=== PATIENT | female | born 1950 | race Caucasian/White ===

== ENCOUNTER → 2020-07-14 09:40 | Outpatient (CLI) | payer MEDICARE, SELFPAY ==
[2020-07-14 11:27] LABS: Free T3, Triiodothyronine Free 3.58 pg/mL (2.77-5.27); Free T4, Direct Thyroxine 0.97 ng/dL (0.78-2.19)
[2020-07-14 11:40] LABS: Thyroid Stimulating Hormone 2.63 uIU/mL (0.47-4.68)
== END ==
PROVIDERS: Family Provider Family Medicine; PCP Family Medicine; Referring Provider Family Medicine; Visit Provider Family Medicine
DX: Z86.39 Personal history of other endocrine, nutritional and metabolic disease (principal)
CPT/HCPCS: 36415; 84439; 84443; 84481

== ENCOUNTER → 2021-12-08 08:34 | Outpatient (CLI) | payer MEDICARE, SELFPAY ==
[2021-12-08 09:41] LABS: Add Manual Diff / Slide Review NO; Basophils Absolute Auto 0 /uL (0-100); Basophils Percent Auto 0.6 % (0-2); Eosinophils Absolute Auto 300 /uL (0-450); Eosinophils Percent Auto 4.1 % (2-4); Hematocrit 46.2 % (36-46); Hemoglobin 14.9 g/dL (12.0-16.0); Lymphocytes Absolute Auto 2800 /uL (1100-4500); Lymphocytes Percent Auto 40.2 % (25-40); Mean Corpuscular HGB Conc 32.2 % (30-36); Mean Corpuscular Hemoglobin 28.5 PG (26-34); Mean Corpuscular Volume 88.4 fL (80-100); Monocytes Absolute Auto 400 /uL (0-900); Monocytes Percent Auto 5.7 % (3-14); Neutrophils Absolute Auto 3500 /uL (1500-7000); Neutrophils Percent Auto 49.4 % (50-75); Platelet Count 258 X10^3/uL (150-400); Red Blood Cell Count 5.22 X10^6/uL (4.0-5.2); Red Cell Distribution Width 13.8 % (11.6-14.8)
[2021-12-08 10:02] LABS: Alanine Aminotransferase 27 IU/L (<35); Albumin 4.2 g/dL (3.5-5.0); Albumin Globulin Ratio 1.6 (1.0-2.8); Alkaline Phosphatase 76 U/L (38-126); Aspartate Aminotransferase 25 IU/L (14-36); BUN Creatinine Ratio 19.1 (6-22); Bilirubin Total 0.7 mg/dL (0.2-1.3); Blood Urea Nitrogen 13 mg/dL (7-17); Calcium 10.6 mg/dL (8.4-10.2); Carbon Dioxide 22 mmol/L (22-32); Chloride 107 mmol/L (98-107); Cholesterol 251 mg/dL (140-199); Estimated Glomerular Filt Rate > 60 mL/min (>60); Globulin 2.7 g/dL (1.7-4.1); Glucose 113 mg/dL (80-110); HDL Cholesterol 62 mg/dL (40-60); HEMOLYSIS < 15 (0-50); LDL Cholesterol Calculated 141 mg/dL (<100); Potassium 4.6 mmol/L (3.4-5.1); Sodium 137 mmol/L (137-145); Total Protein 6.9 g/dL (6.3-8.2); Triglycerides 241 mg/dL (35-150)
[2021-12-08 10:16] LABS: Free T3, Triiodothyronine Free 3.59 pg/mL (2.77-5.27); Free T4, Direct Thyroxine 0.92 ng/dL (0.78-2.19)
[2021-12-08 10:29] LABS: Thyroid Stimulating Hormone 2.91 uIU/mL (0.47-4.68)
== END ==
PROVIDERS: Family Provider Family Medicine; PCP Family Medicine; Referring Provider Family Medicine; Visit Provider Family Medicine
DX: Z86.39 Personal history of other endocrine, nutritional and metabolic disease (principal); Z13.220 Encounter for screening for lipoid disorders
CPT/HCPCS: 36415; 80053; 80061; 84439; 84443; 84481; 85025

== ENCOUNTER → 2021-12-27 09:47 | Outpatient (CLI) | payer MEDICARE, SELFPAY ==
[2021-12-27 10:42] LABS: COVID19 -Nasal RAPID Negative (Negative)
== END ==
PROVIDERS: Family Provider Family Medicine; PCP Family Medicine; Visit Provider Family Medicine Sleep Medicine
DX: Z20.822 Contact with and (suspected) exposure to COVID-19 (principal)
CPT/HCPCS: 87635; C9803

== ENCOUNTER → 2022-01-02 08:29 | Outpatient (CLI) | payer MEDICARE, SELFPAY ==
--- NOTE | 2022-01-02 09:20 | PM.TREADMILL ---
Cardiac Stress Test Report Referral & Results Date Patient Seen: 01/02/22 Time Patient Seen: 09:00 Requesting provider: Benja Morales Indication: Chest discomfort Rest ECG: Normal sinus rhythm Procedure Note: Today, following both written and verbal informed consent, the patient was exercised according to a standard Jv protocol. The patient went for a total of 6 minutes achieving a maximum heart rate of 155 maximum systolic blood pressure of 180. This is approximately 7.0 METs. Exercise was terminated at this point because of fatigue. Patient was also given Cardiolite through a previously started Hep-Lock IV by the dye penetrant testing technician approximately 1 minute prior to the cessation of exercise. Normal hemodynamic response to exercise. Normal exercise capacity (FA I -5% on active scale). Frequent PVCs in proportion to exertion. A single, 3-beat run of NSVT. No signs or symptoms of angina. No other EKG changes. Impression: Low probability for ischemia. Exercise-induced PVCs. Perfusion imaging pending. Please note: Actual ECG tracings can be found in the PACS system.
--- NOTE | 2022-01-04 05:29 | DI.NM.S_ITS ---
DATE OF SERVICE: PROCEDURE: Exercise perfusion study. INDICATION: Chest pain. RADIOPHARMACEUTICAL: 24.5 mCi technetium-99m Myoview IV was injected at stress and 15.0 mCi technetium-99m Myoview IV was injected at rest. CARDIAC STRESS: The patient underwent exercise perfusion study under the supervision of the attending staff. The patient walked on Jv protocol for 6 minutes and 1 second, achieved 104 percent of target heart rate. Baseline blood pressure 120/80 mmHg. Peak blood pressure 180/90 mmHg. Functional aerobic impairment -5 percent. Achieved 7 METs of workload. No anginal symptoms. The patient felt fatigue. Baseline rhythm was sinus. During stress, no convincing ischemic EKG changes seen. Intermittent premature ventricular contractions were seen during exercise as well as one three-beat run of a supraventricular tachycardia. No sustained ventricular tachycardia seen. RAW DATA: There is a breast shadow seen. GATED STUDY: Resting left ventricular ejection fraction 80 percent and stress left ventricular ejection fraction 85 percent without any obvious wall motion abnormalities. Resting end-diastolic volume 51 mL. TID ratio 0.73, which is within normal limits. Lung/heart ratio 0.19, which is within normal limits. MYOCARDIAL PERFUSION SCAN: Stress supine and resting supine images revealed small size, mildly decreased perfusion of distal anterior wall, which got resolved during prone images suggestive of breast tissue attenuation artifact. CONCLUSION: 1. This is a normal myocardial perfusion study with evidence of breast tissue attenuation artifact which got resolved during prone images. 2. Fair exercise tolerance. 3. Normal hemodynamic response. 4. Intermittent premature ventricular contractions and one three-beat run of nonsustained ventricular tachycardia. No sustained ventricular tachycardia. Preserved left ventricular function. As far as perfusion scan is concerned, this is a low-risk myocardial perfusion scan. Shanda Fernandez - SAI/fabian/WANDA doc#: [id number]/job#: [id number] dd: 01/03/2022 17:25:00 dt: 01/03/2022 19:40:00 DICTATING MD/COPIES TO: Bradley Scruggs MD COPIES MNE: SUSAN;
== END ==
PROVIDERS: Family Provider Family Medicine; PCP Family Medicine; Referring Provider Family Medicine; Visit Provider Family Medicine
DX: R07.89 Other chest pain (principal)
CPT/HCPCS: 78452; 93016; 93017; 93018; A9502

== ENCOUNTER → 2022-07-12 08:32 | Outpatient (CLI) | payer MEDICARE, SELFPAY ==
[2022-07-12 09:24] LABS: Influenza A - CEPHEID Flu A POSITIVE (NEGATIVE); Influenza B - CEPHEID Flu B NEGATIVE (NEGATIVE); Respiratory Syncytial Virus Negative (Negative)
[2022-07-12 09:32] LABS: COVID-19 CEPHEID 4-PLEX PCR Negative (Negative)
== END ==
PROVIDERS: Family Provider Family Medicine; PCP Family Medicine; Visit Provider Nurse Practitioner Family
DX: R05.9 Cough, unspecified (principal)
CPT/HCPCS: 0241U

== ENCOUNTER → 2023-10-24 14:42 | Outpatient (CLI) | payer MEDICARE, SELFPAY ==
[2023-10-24 16:53] LABS: Free T3, Triiodothyronine Free 3.48 pg/mL (2.77-5.27)
[2023-10-24 17:06] LABS: Thyroid Stimulating Hormone 2.05 uIU/mL (0.47-4.68)
== END ==
PROVIDERS: Family Provider Family Medicine; PCP Family Medicine; Referring Provider Family Medicine; Visit Provider Family Medicine
DX: L65.9 Nonscarring hair loss, unspecified (principal); Z98.890 Other specified postprocedural states
CPT/HCPCS: 36415; 84439; 84443; 84481

== ENCOUNTER → 2024-03-14 14:05 | Outpatient (CLI) | payer MEDICARE, SELFPAY ==
[2024-03-14 14:48] LABS: Add Manual Diff / Slide Review NO; Basophils Absolute Auto 0 /uL (0-100); Basophils Percent Auto 0.5 % (0-2); Eosinophils Absolute Auto 200 /uL (0-450); Eosinophils Percent Auto 2.4 % (2-4); Hematocrit 39.9 % (36-46); Hemoglobin 13.4 g/dL (12.0-16.0); Lymphocytes Absolute Auto 1800 /uL (1100-4500); Lymphocytes Percent Auto 23.5 % (25-40); Mean Corpuscular HGB Conc 33.5 % (30-36); Mean Corpuscular Hemoglobin 28.6 PG (26-34); Mean Corpuscular Volume 85.2 fL (80-100); Monocytes Absolute Auto 700 /uL (0-900); Monocytes Percent Auto 8.7 % (3-14); Neutrophils Absolute Auto 5100 /uL (1500-7000); Neutrophils Percent Auto 64.9 % (50-75); Platelet Count 230 X10^3/uL (150-400); Red Blood Cell Count 4.69 X10^6/uL (4.0-5.2); Red Cell Distribution Width 14.4 % (11.6-14.8); White Blood Cell Count 7.8 X10^3/uL (4.5-11.0)
[2024-03-14 15:12] LABS: Alanine Aminotransferase 68 IU/L (<35); Albumin 4.1 g/dL (3.5-5.0); Albumin Globulin Ratio 1.5 (1.0-2.8); Alkaline Phosphatase 108 U/L (38-126); Amylase 61 U/L (30-110); Aspartate Aminotransferase 22 IU/L (14-36); BUN Creatinine Ratio 22.7 (6-22); Bilirubin Total 0.5 mg/dL (0.2-1.3); Blood Urea Nitrogen 17 mg/dL (7-17); Calcium 10.8 mg/dL (8.4-10.2); Carbon Dioxide 23 mmol/L (22-32); Chloride 109 mmol/L (98-107); Cholesterol 167 mg/dL (140-199); Estimated Glomerular Filt Rate > 60 mL/min (>60); Globulin 2.7 g/dL (1.7-4.1); Glucose 145 mg/dL (80-110); HDL Cholesterol 43 mg/dL (40-60); HEMOLYSIS < 15 (0-50); LDL Cholesterol Calculated 97 mg/dL (<100); Lipase 201 U/L (23-300); Potassium 3.9 mmol/L (3.4-5.1); Sodium 138 mmol/L (137-145); Total Protein 6.8 g/dL (6.3-8.2); Triglycerides 135 mg/dL (35-150)
== END ==
PROVIDERS: Family Provider Family Medicine; PCP Family Medicine; Referring Provider Family Medicine; Visit Provider Family Medicine
DX: E78.2 Mixed hyperlipidemia (principal); R10.13 Epigastric pain; M54.9 Dorsalgia, unspecified
CPT/HCPCS: 36415; 80053; 80061; 82150; 83690; 85025

== ENCOUNTER → 2024-03-25 07:11 | Outpatient (CLI) | payer MEDICARE, SELFPAY ==
--- NOTE | 2024-03-25 07:12 | DI.US.S_ITS ---
PROCEDURE: US ABDOMEN COMPLETE INDICATIONS: stomach pain TECHNIQUE: Real-time scanning was performed of the abdominal and retroperitoneal organs, with image documentation. COMPARISON: None. FINDINGS: Liver: The liver demonstrates normal size. The liver demonstrates generalized mildly increased echogenicity. This decreases ultrasound sensitivity for detection of hepatic masses. Gallbladder: The gallbladder is enlarged, measuring 12.4 x 3.7 x 4.4 cm. Mobile sludge and nonmobile gallstones can be seen within the neck of the gallbladder. The gallbladder wall is thickened at 5 mm. There is pericholecystic fluid. The sonographic Smith sign is positive. Biliary ducts: Intrahepatic bile ducts are non-dilated. Extrahepatic bile duct caliber measures 5 mm. Normal is 6-7 mm or less in diameter, or 10 mm or less post-cholecystectomy. Pancreas: Visualized portions of the pancreas are sonographically normal. Miscellaneous: No free abdominal fluid. IMPRESSION: Findings highly suspicious for cholecystitis. Please consider surgical consultation. Note: Dr. Morales was not available to discuss this case at the time of this dictation. Urgent findings relayed to Dr. Morales via office staff, Antonia, at 4:48 p.m. [place] time on March 25, 2024. Dictated by: Nestor Herron M.D. on 03/25/2024 at 15:43 Approved by: Nestor Herron M.D. on 03/25/2024 at 15:49
== END ==
LOC: US 07:11
PROVIDERS: Family Provider Family Medicine; PCP Family Medicine; Referring Provider Family Medicine; Visit Provider Family Medicine
DX: K82.8 Other specified diseases of gallbladder (principal); K80.20 Calculus of gallbladder without cholecystitis without obstruction; R10.13 Epigastric pain; R74.01 Elevation of levels of liver transaminase levels
CPT/HCPCS: 76705

== ENCOUNTER 2024-04-11 11:58 | Day surgery (SDC) | payer MEDICARE, SELFPAY ==
[2024-04-09 15:17] VITALS: BMI 21.9
[2024-04-11] VITALS (12 sets, daily range): BP systolic 108–141; BP diastolic 59–79; PULSE 63–88; RESP 15–20; TEMP 36.2–36.9; O2SAT 91–99; BMI 21.9
--- NOTE | 2024-04-11 | PATH_ITS ---
[facility] Accession Number: [id number] No. of containers..02 Tissue . 01 Material submitted: . PART A: gallbladder - GALLBLADDER AND CONTENTS PART B: esophagus, E-G Junction - GE JUNCTION . 01 Diagnosis: A. GALLBLADDER AND CONTENTS, CHOLESCYSTECTOMY: Acute and chronic cholecystitis with cholelithiasis. Negative for dysplasia or malignancy. - B. ESOPHAGUS, EG JUNCTION, BIOPSY: Squamocolumnar junctional mucosa with reactive changes suggestive of reflux. Negative for intestinal metaplasia, dysplasia, or malignancy. Negative for intraepithelial eosinophils. Multiple deeper levels examined. [facility] 04/16/2024 1431 Local . 01 Electronically signed: . Cooper Madrigal MD, Pathologist NPI- [id number] . 01 Gross description: . A. Received in formalin, labeled with two identifiers and gallbladder and contents, is a disrupted gallbladder (11.2 x 3.2 x 2.4 cm) with a large defect on the hepatic surface, 4.1 cm in greatest dimension. The cystic duct margin is inked blue. No pericystic lymph node is identified. Multiple yellow to fountain faceted calculi are identified within the lumen and the container, up to 1.5 cm in greatest dimension, grossly obstructing the cystic duct, with no bile definitively identified. The mucosa is fountain and roughened with no yellow discoloration, polyps, or lesions identified. The gutierrez average 0.3 cm thick. In Home [employer] sections to include the cystic duct margin and full-thickness sections are submitted in cassette A1. B. Received in formalin, labeled with two identifiers and GE junction, are two fountain soft tissue fragments measuring 0.3 cm each in greatest dimension. Submitted in cassette B1. ([id number]) / 04/12/2024 1504 Local . Pathologist provided ICD-10: K81.0, Z13.9 . 01 CPT . 368291, 682417 Specimen Comment: A courtesy copy of this report has been sent to [phone] Performed at: [address] [id number] MD Prakash Garcia MD Phone: [phone]
[2024-04-11] MEDS: LACTATED RINGERS 1,000 ML 100 ML IV (12:41)
--- NOTE | 2024-04-11 13:31 | PM.PREOP ---
Pre-operative Note Interval Note History & Physical reviewed/Exam performed by Physician: Yes Changes to H&P: No
--- NOTE | 2024-04-11 13:52 | SUR.OPER ---
Supine on padded OR bed, head on pillow, arms secured on padded arm boards at <90 degrees abduction, legs uncrossed, safety belt at thigh, tape over blanket over lower legs.
[2024-04-11] MEDS: CEFAZOLIN 2 GM/100 ML PREMIX 100 ML IV (14:13)
[2024-04-11] MEDS: BUPIVACAINE 0.25% (PF) VIAL 30 ML INJ (14:33)
[2024-04-11] MEDS: fentaNYL 100 MCG/2 ML INJ IV ×4 (15:48→16:09)
--- NOTE | 2024-04-11 15:48 | PM.OP.1 ---
Operative Date/Time/Diagnoses Date of procedure: 04/11/24 Time of procedure: 15:48 Pre-op diagnosis: GERD, biliary colic Post-op diagnosis: other (Chronic cholecystitis) Procedure & Clinicians Procedure: Esophagogastroduodenoscopy, Laparoscopic cholecystectomy Same procedure as scheduled: Yes Indications: 73-year-old woman with symptoms and radiographic findings consistent with biliary colic here for elective laparoscopic cholecystectomy. Has a history of chronic GERD recently very difficult to control with medication. Surgeon: Helder Markham Click Yes if Unassisted: Yes Anesthesia Type: General Operative Notes Findings: Chronic cholecystitis. Stones and purulence within the gallbladder. Portions of the gallbladder wall are necrotic/friable and perforate with manipulation Mild gastritis and esophagitis. Specimen(s): other (GE junction biopsy, gallbladder) Estimated Blood Loss (mL): 30 Procedure in detail: The patient was placed supine on the table and bilateral lower extremity compression devices were applied. Anesthesia was induced they were intubated with an endotracheal tube and received 2g of Ancef. A bite block was placed. the scope was inserted into the mouth and advanced through the esophagus and into the stomach. The pylorus was intubated and the duodenum was examined to the 2nd portion. The scope was then withdrawn into the stomach and was retroflexed. A biospy of the GE junction was performed with forceps. The distal esophagus and body of the stomach were notable for diffuse inflammation no distinct ulcer. The stomach was decompressed and scope was withdrawn slowly through the esophagus. They were prepped and draped in sterile fashion. An infraumbilical incision was made. The fascia was elevated incised and the abdomen was entered atraumatically. A blunt tip 12mm balloon trocar was then inserted, pneumoperitoneum was established and inspection of the abdomen demonstrated no evidence of injury. They were placed head up and right side up and then a 11 mm port was placed high in the epigastrium and two 5mm in the right upper quadrant. The gallbladder was chronically inflamaed and tense. It was percutaneously drained and the content was purulence. The gallbladder was grasped by the fundus and retracted over the liver and retracted laterally by the infundibulum. The wall of the gallbladder was fribable and perforated with the grasping instruments. Using electrocautery the lateral plane between the gallbladder and the liver was opened towards the fundus. The gallbladder was then retracted laterally and the medial plane was developed in the same manner. With the gallbladder mobilized the bottom of the cystic plate was visualized. The hepatocystic triangle was meticulosly skeletonized with blunt dissection of fat and fibrous tissue from both the front and the back. Only two structures were then clearly seen entering the gallbladder the cystic duct and the cystic artery. With the critical view of safety fully established the cystic duct was clipped twice proximally and once distally using the 10 mm Weck hemoclip applied under direct visualization and then sharply divided. The cystic artery was divided in the same fashion. The gallbladder was removed from the liver bed using electro cautery. There was spillage of gallstones and purulence and the stones were removed with the stone forceps and the abdomen was irriagated with 4 L until it returned clear. The liver bed was then inspected for hemostasis and this was achieved. The specimen was removed using Endo-Catch. The abdomen was desufflated. The umbilical fascia was closed with 0 Vicryl in a [id number] fashion under direct visualization. Skin incisions were irrigated and closed with 4-0 Monocryl. 30 ml of 0.25% bupivacaine was infiltrated into the subcutaneous tissue of the incisions. The wounds were sealed with Dermabond. Patient emerged from anesthesia was extubated and transferred to recovery in stable condition. The sponge and instrument count at the end of the operation was correct. Complications: none Post-operative Condition: stable Disposition: same day surgery
[2024-04-11] MEDS: ONDANSETRON 4 MG/2 ML INJ IV ×2 (16:37→17:44)
[2024-04-11] MEDS: KETOROLAC 30 MG/ML VIAL 15 MG IV (16:41)
[2024-04-11] MEDS: LACTATED RINGERS 1,000 ML 42 ML IV (17:00)
== END 2024-04-11 17:49 | disposition home or self-care (01) ==
PROVIDERS: Family Provider Family Medicine; PCP Family Medicine; Referring Provider Surgery; Visit Provider Surgery
PROC: 0FT44ZZ Resection of Gallbladder, Percutaneous Endoscopic Approach (ICD-10-PCS; CPT 47562; principal; 2024-04-11 13:45)
PROC: 0DJ08ZZ Inspection of Upper Intestinal Tract, Via Natural or Artificial Opening Endoscopic (ICD-10-PCS; CPT 43235; 2024-04-11 13:45)
DX: K21.00 Gastro-esophageal reflux disease with esophagitis, without bleeding (principal); K29.70 Gastritis, unspecified, without bleeding; K80.12 Calculus of gallbladder with acute and chronic cholecystitis without obstruction
CPT/HCPCS: 47562; 43239; J0690; J1100; J1885; J2405; J2704; J3010; J3490